=== PATIENT | female | born 1935 | race Caucasian/White ===

== ENCOUNTER 2018-09-04 02:18 | Outpatient (CLI) | payer BC | END 2018-09-04 23:59 | disposition home or self-care (01) | LOC: DIABETIC 02:18 | PROVIDERS: ATTEND Nurse Practitioner | DX: E11.65 Type 2 diabetes mellitus with hyperglycemia (principal); I10 Essential (primary) hypertension; Z79.899 Other long term (current) drug therapy; Z91.030 Bee allergy status; Z88.8 Allergy status to other drugs, medicaments and biological substances | CPT/HCPCS: G0108 ==

== ENCOUNTER 2018-10-09 02:25 | Outpatient (CLI) | payer BC | END 2018-10-09 23:59 | disposition home or self-care (01) | LOC: DIABETIC 02:25 | PROVIDERS: ATTEND Nurse Practitioner | DX: E11.65 Type 2 diabetes mellitus with hyperglycemia (principal); I10 Essential (primary) hypertension; Z91.030 Bee allergy status; Z91.010 Allergy to peanuts | CPT/HCPCS: G0108 ==

== ENCOUNTER 2023-01-03 11:54 | Emergency (ER) | payer BC ==
[~2023-01-03] VITALS: Ht 160 cm; Wt 65.0 kg
[2023-01-03 12:01] VITALS: BP 135/74
[2023-01-03] MEDS ORDERED: dexamethasone sod phosphate 10mg/ml inj PO STA (13:04)
[2023-01-03] MEDS ORDERED: CEPH250T PO (13:05)
[2023-01-03] MEDS ORDERED: LIDO20SO16 PO (13:05)
== END 2023-01-03 13:22 | disposition home or self-care (01) ==
LOC: ER 11:54
DX: J02.9 Acute pharyngitis, unspecified (principal); Z20.822 Contact with and (suspected) exposure to COVID-19
CPT/HCPCS: 87811; 87880; 99283; J1100